=== PATIENT | female | born 1990 | race Caucasian/White ===

== ENCOUNTER 2017-04-06 06:15 | Inpatient (IN) ==
[2017-04-06] MEDS ORDERED: BUTORPHANOL 2 MG/ML VIAL IV PRN (06:25)
[2017-04-06] MEDS ORDERED: ONDANSETRON 4 MG/2 ML VIAL IV PRN (06:25)
[2017-04-06] MEDS ORDERED: MEPERIDINE 50 MG/1 ML VIAL IV PRN (06:25)
[2017-04-06] MEDS ORDERED: INFLUENZA VIRUS VACCINE 0.5 ML SYRINGE IM ONE (06:28)
[2017-04-06] MEDS ORDERED: OXYTOCIN/LR 20 UNIT/1,000 ML BAG IV SCH (06:30)
[2017-04-06] MEDS: LACTATED RINGERS 1,000 ML IV SCH ×3 (06:43→15:11)
[2017-04-06 06:58] LABS: Basophils # 0.1 10*3/uL (0.0-0.2); Basophils % 0.4 % (0.0-0.8); Eosinophils # 0.1 10*3/uL (0.0-0.87); Hematocrit 35.9 VOL% (35.7-47.0); Hemoglobin 11.9 GM/DL (12.0-16.0); Immature Granulocytes % 0.8 %; Immature Granulocytes Absolute 0.09 #; Lymphocytes # 3.2 10*3/uL (1.4-4.0); Lymphocytes % 26.4 % (21.3-54.2); Mean Corpuscular HGB Conc 33.1 GM/DL (32-36); Mean Corpuscular Hemoglobin 26 PG (27-34); Mean Corpuscular Volume 79.4 FL (87-102); Mean Platelet Volume 10.2 FL (9.6-12.0); Monocytes # 0.9 10*3/uL (0.11-0.8); Monocytes % 7.5 % (1.7-12.7); Neutrophils # 7.6 10*3/uL (1.4-7.4); Neutrophils % 63.9 % (38.7-73.9); Platelet Count 284 T/CUMM (130-400); Red Blood Count 4.52 MC/CUMM (3.8-5.5); White Blood Count 11.9 T/CUMM (4-12)
[2017-04-06 07:07] LABS: INR 0.8; PT Patient Result 8.9 SECS; Partial Thromboplastin Time 26.3 SECS (0-40)
[2017-04-06 07:34] LABS: Alanine Aminotransferase 26 U/L (13-56); Albumin 2.9 G/DL (3.4-5.0); Alkaline Phosphatase 160 U/L (45-117); Aspartate Amino Transferase 21 U/L (0-37); Bilirubin,Total < 0.39 MG/DL (0.2-1.0); Blood Urea Nitrogen 13 MG/DL (7-18); Calcium 8.4 MG/DL (8.5-10.1); Glucose 73 MG/DL (74-106); Osmolality,Calculated 273.7 MOS/KG (273-304); Potassium 3.8 MMOL/L (3.5-5.1); Sodium 138 MMOL/L (136-145); Total Protein 6.9 G/DL (6.4-8.3)
[2017-04-06] MEDS ORDERED: FAMOTIDINE 20 MG/2 ML VIAL IV PRN (08:28)
[2017-04-06] MEDS ORDERED: diphenhydrAMINE 50 MG/1 ML VIAL IV PRN (08:28)
[2017-04-06] MEDS ORDERED: ePHEDrine 50 MG/ML AMP IV PRN (08:28)
[2017-04-06] MEDS ORDERED: PROMETHAZINE 25 MG/1 ML VIAL IM PRN (08:28)
[2017-04-06] MEDS ORDERED: CITRIC ACID/SODIUM CITRATE 30 ML UDCUP PO PRN (08:28)
[2017-04-06] MEDS ORDERED: fentaNYL 2 MCG/ROPIV 0.2% EPID 150 ML EPIDURAL PRN (08:28)
[2017-04-06 08:53] LABS: Barbiturates Screen,Urine Negative (Negative); Benzodiazepines Screen,Urine Negative (Negative); Cannabinoid Screen,Urine Negative (Negative); Opiate Screen,Urine Negative (Negative); Phencyclidine Screen,Urine Negative (Negative)
--- NOTE | 2017-04-06 09:27 | OB/GYN History & Physical ---
History of Present Illness Chief complaint: In for elective induction of labor due to term . History of present illness: Ms. Ascencio is a 26 year old female who is a 3 para 2 living 2. Her ADRI is 04/11/2017 for an estimated gestational age of 39 weeks. The patient presents for elective induction of labor due to term . The risk and benefits of been thoroughly discussed with this patient significant other, plan of care has been discussed with Dr. Barrera, all parties are in agreement plan. Patient received her care at the [facility] and she received routine care and her course was uneventful. The patient has had 2 previous vaginal deliveries and the largest infant weighed 7 pounds and 1 ounce , she reported no complications with either . The patient has a prior history of substance abuse. She denies any current use. She continues to smoke cigarettes. She also has a history of hypertension doing this she was treated with labetalol and has done well. labs: She is B+, rubella is immune, RPR is nonreactive, hepatitis B negative, HIV negative, GBS culture negative. Review of systems is negative with exception of above. Home Medications Medication Instructions Recorded Confirmed Type Labetalol HCl 100 mg PO DAILY 03/17/17 04/06/17 History Ranitidine Tab [Zantac Tab] 150 mg PO BID 03/24/17 04/06/17 History Allergies Allergy/AdvReac Type Severity Reaction Status Date / Time Penicillins Allergy HIVES Verified 03/31/17 15:20 12 point system: reviewed and no additional remarkable complaints except as stated Medical,Surgical,& Family Hx - Medical History Cardio: History of: Hypertension (during preg) Respiratory: History of: Asthma Reproductive: No history of: Ectopic , Complication - Surgical History Neurologic Surgeries: Patient denies: Neurologic Surgery - Family History Family History: Reports;: Family Cancer (mom and sister cervical), Additional Family History (mother has hep c) - Social History Smoking Status: Current every day smoker Have you smoked in the last 12 months: Yes Frequency of Alcohol Use: None Type of Drug Use: None Marital Status: Single Lives With:: Significant Other Functional capacity: independent ambulation 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 Vitals: Vital Signs Temp Pulse Resp BP 04/06/17 06:25 97.1 F L 120 H 20 144/89 General appearance: no acute distress - Antepartum / Post Antepartum Exam Cervix - Dilatation: 4cm Effacement: 80% Station: -2 Rupture: Intact Presentation: Vertex Heart Rate: 130s Breast: bilateral: normal Abdomen obstetrics: Present: bowel sounds normal Vagina: Present: normal moisture, discharge Uterus exam: Present: enlarged - Respiratory Respiratory exam: Present: clear to auscultation bilaterally - Cardiovascular Cardiovascular exam: Present: regular rate and rhythm - GI/Abdominal GI/Abdominal exam: Present: normal bowel sounds, soft - Extremities Exam Extremities exam: Present: normal inspection - Back Exam Back exam: Present: normal inspection - Neurological Exam Neurological exam: Present: alert, oriented X3 - Psychiatric Psychiatric exam: Present: normal affect, normal mood - Skin Skin exam: Present: normal color, warm Assessment and Plan (1) 39 weeks gestation of Status: Acute Assessment and plan: Admit IV fluids IV Pitocin per protocol Artificial rupture membranes when appropriate Internal monitors if indicated Epidural anesthesia desired Anticipate Current Visit: Yes Results - Labs CBC & BMP: 04/06/17 06:43 04/06/17 06:43
--- NOTE | 2017-04-06 13:14 | Event Note ---
HPI: Ms. Ascencio presented to the labor department for elective induction of labor due to term . The risk and benefits were thoroughly discussed with the patient and significant other, plan of care discussed with Dr. Barrera and all parties were in agreement plan. Stage I: The patient was admitted she received IV fluids and IV Pitocin per protocol. Artificial rupture of membranes was performed with clear fluid noted. An epidural anesthesia was obtained for pain control. The patient progressed in labor with a CAT 1 tracing. She had an uneventful course of labor. Stage II: The patient was complete and instructed to push. She pushed for approximately 5 minutes at which time the infant's head was delivered. The mouth and nose suctioned on the perineum. A hand presentation was noted and reduced. The remainder the infant was delivered at 1250 a viable male was noted. Apgars were 8 at 1 minute and 9 at 5 minutes. weight was 7 pounds and 13 ounces. A cord pH was obtained and sent to the lab. The was placed on the mom's abdomen for skin to skin bonding. Stage III: A spontaneous delivery of a Steve placenta with a three-vessel cord noted. Placenta was further examined appeared to be grossly intact. The vagina cervix inspected with a first-degree perineal laceration noted which was repaired. Epidural anesthesia remain in effect on repair. Estimated blood loss was was approximately 150 cc. At the time of dictation mother and baby are both in stable condition.
[2017-04-06] MEDS ORDERED: ACETAMINOPHEN/CODEINE 300-30 MG TABLET PO PRN (13:16)
[2017-04-06 13:47] LABS: Apearance,Urine CLEAR (Clear); Bilirubin,Urine Negative (Negative); Blood, Urine Negative (Negative); Glucose,Urine (UA) Negative (Negative); Ketones,Urine Negative (Negative); Mucus,Urine Occasional /LPF (Occasional); Nitrite,Urine Negative (Negative); Protein,Urine Negative; RBC,Urine <1 /HPF (0-4); Squamous Epithelial Cell,Urine Occasional /HPF (0-10); Urine Color Yellow (Yellow); Urine Specific Gravity 1.009 (1.001-1.035); Urine Urobilinogen < 2.0 EU/DL (0.2-1.0)
[2017-04-06 13:52] LABS: Cord Arterial Blood HCO3 18.9 MMOL/L
[2017-04-06 13:55] LABS: Cord Venous Blood HCO3 22.6 MMOL/L; Cord Venous Blood PCO2 43.9 MMHG; Cord Venous Blood PO2 24.5
[2017-04-06] MEDS ORDERED: OXYTOCIN/LR 30 UNIT/1,000 ML BAG IV ONE (15:13)
[2017-04-06] MEDS ORDERED: DIPH/TET/ACEL PERT BOOSTER VACCINE 0.5 ML VIAL IM ONE (15:32)
[2017-04-06] MEDS ORDERED: WITCH HAZEL PADS 100/JAR TOP PRN (15:32)
[2017-04-06] MEDS ORDERED: oxyCODONE/ACETAMINOPHEN 5-325 MG TABLET PO PRN ×2 (15:32)
[2017-04-06] MEDS ORDERED: ACETAMINOPHEN 325 MG TABLET PO PRN (15:32)
[2017-04-06] MEDS ORDERED: BENZOCAINE 20%/MENTHOL 0.5% SPRAY 56 GM CAN TOP PRN (15:32)
[2017-04-06] MEDS ORDERED: BISACODYL 10 MG SUPP RECTAL PRN (15:32)
[2017-04-06] MEDS ORDERED: MEASLES/MUMPS/RUBELLA VACCINE 0.5 ML VIAL SUBCUT ONE (15:32)
[2017-04-06] MEDS ORDERED: HYDROCORTISONE 2.5% RECTAL CREAM 30 GM TUBE TOP PRN (15:32)
[2017-04-06] MEDS ORDERED: LANOLIN 50% CREAM 0.3 OZ TUBE TOP PRN (15:32)
[2017-04-06] MEDS ORDERED: RHO(D) IMMUNE GLOBULIN 300 MCG SYRINGE IM ONE (15:32)
[2017-04-06] MEDS: IBUPROFEN 800 MG TABLET PO PRN (20:14)
[2017-04-06] MEDS: DOCUSATE SODIUM 100 MG CAPSULE PO SCH (20:14)
--- NOTE | 2017-04-06 23:32 | Anesthesia Post-Op ---
Anesthesia Post OP - Post Ansesthetic Evaluation Patient seen in post op: Yes Resp: within normal limits CV: within normal limits Mental: within normal limits Temp: within normal limits [id number]: within normal limits Nausea and Vomiting: within normal limits Pain: within normal limits
[2017-04-07] MEDS: IBUPROFEN 800 MG TABLET PO PRN ×3 (03:52→20:14)
[2017-04-07 06:47] LABS: Basophils % 0.2 % (0.0-0.8); Eosinophils # 0.2 10*3/uL (0.0-0.87); Eosinophils % 1.1 % (0.00-10.9); Hematocrit 30.8 VOL% (35.7-47.0); Immature Granulocytes % 0.4 %; Immature Granulocytes Absolute 0.06 #; Lymphocytes # 2.9 10*3/uL (1.4-4.0); Lymphocytes % 20.6 % (21.3-54.2); Mean Corpuscular HGB Conc 32.5 GM/DL (32-36); Mean Corpuscular Hemoglobin 26 PG (27-34); Mean Corpuscular Volume 80.6 FL (87-102); Mean Platelet Volume 10.4 FL (9.6-12.0); Monocytes # 1.1 10*3/uL (0.11-0.8); Monocytes % 7.6 % (1.7-12.7); Neutrophils # 9.8 10*3/uL (1.4-7.4); Neutrophils % 70.1 % (38.7-73.9); Platelet Count 249 T/CUMM (130-400); Red Blood Count 3.82 MC/CUMM (3.8-5.5)
[2017-04-07] MEDS: DOCUSATE SODIUM 100 MG CAPSULE PO SCH ×2 (09:04→20:14)
--- NOTE | 2017-04-07 09:44 | OB/GYN Progress Note ---
Assessment and Plan (1) 39 weeks gestation of Status: Acute Assessment and plan: Admit IV fluids IV Pitocin per protocol Artificial rupture membranes when appropriate Internal monitors if indicated Epidural anesthesia desired Anticipate Current Visit: Yes (2) Vaginal delivery Status: Acute Assessment and plan: Initiate routine orders. 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 Bonding well with infant. Exam CHANNEL LAYER - Constitutional Vitals: Vital Signs Temp Pulse Resp BP Pulse Ox 04/07/17 07:28 98.7 F 76 18 118/63 98 04/07/17 06:47 17 04/07/17 06:00 18 04/07/17 04:59 18 04/07/17 04:00 97.1 F L 86 18 133/78 100 04/07/17 03:00 18 04/07/17 02:00 18 04/06/17 23:54 97.7 F 91 H 20 135/69 98 04/06/17 20:00 98.4 F 121 H 20 142/90 100 04/06/17 17:30 86 20 123/76 98 04/06/17 16:30 84 20 138/85 98 04/06/17 16:00 90 20 123/72 98 04/06/17 15:30 97.3 F L 83 20 122/74 98 General appearance: no acute distress - Antepartum / Post Post Exam Breast: bilateral: normal Abdomen obstetrics: Present: bowel sounds normal Vagina: Present: normal moisture, discharge (Light lochia rubra) Uterus exam: Present: enlarged (Fundus firm and midline) Anus/Rectum: Present: normal perianal skin - Respiratory Respiratory exam: Present: clear to auscultation bilaterally - Cardiovascular Cardiovascular exam: Present: regular rate and rhythm - GI/Abdominal GI/Abdominal exam: Present: normal bowel sounds, soft - Extremities Exam Extremities exam: Present: normal inspection - Neurological Exam Neurological exam: Present: alert, oriented X3 - Psychiatric Psychiatric exam: Present: normal affect, normal mood - Skin Skin exam: Present: normal color, warm Results - Labs CBC & BMP: 04/07/17 06:21 04/06/17 06:43
[2017-04-07] MEDS: FERROUS SULFATE 325 MG TABLET PO SCH ×2 (10:15→20:14)
[2017-04-08 07:25] VITALS: BP 114/69
[2017-04-08] MEDS: FERROUS SULFATE 325 MG TABLET PO SCH (08:51)
[2017-04-08] MEDS: DOCUSATE SODIUM 100 MG CAPSULE PO SCH (08:52)
[2017-04-08] MEDS: IBUPROFEN 800 MG TABLET PO PRN (08:52)
--- NOTE | 2017-04-08 09:44 | Discharge Summary ---
Hospital Course - Hospital Course Hospital Course: Ms. Ascencio presented to the labor department for elective induction of labor due to term . She subsequently delivered a viable with no complications. She has followed a normal course and she has done well. Her bleeding is minimal with no odor. Her perineum is intact with no edema. Her vital signs and lab values are stable. She is bonding well with her infant. Contraception options has been discussed with this patient, she is unsure of a method at this time. She states she thinks she may want to get her tubes tied will make that decision at her visit. She will be discharged to home with prescriptions for pain and a follow-up appointment in our office. Diagnosis - Discharge Diagnosis (1) 39 weeks gestation of Status: Acute (2) Vaginal delivery Status: Acute Specialty Discharge - Follow Up or Referrals Follow up with: Minna Barrera MD [Physician] - (Follow-up in 6 weeks.) Discharge Plan - Discharge Data Disposition: Disch To Home/Self Care Condition at Discharge: Stable Discharge Diet: advance to your usual diet, regular diet Activity: resume usual activities as tolerated Hygiene: no restrictions Weight Bearing at Discharge: weight bear as tolerated Driving: no restrictions Contact your physician if you experience:: fever over 101, Shortness of breath, pain uncontrolled by pain medications - Discharge Medications New Acetamin/Codeine 300-30 Tab [Tylenol/Codeine #3] 2 tablet PO Q4H PRN #30 tablet PRN Reason: Pain Mild (1-3) Ibuprofen Tab [Motrin Tab] 800 mg PO Q6H PRN #30 tablet PRN Reason: Pain Moderate (4-7) NIFEdipine XL TAB [Procardia Xl] 30 mg PO DAILY #30 tablet Ferrous Sulfate Tab [Feosol Original Tab] 325 mg PO BID #60 tablet No Action Labetalol HCl 100 mg PO DAILY Ranitidine Tab [Zantac Tab] 150 mg PO BID - Follow Up or Referral - Forms/Instructions Instructions: Depression (GEN), Perineal Care (DC), Vaginal Delivery (DC), Bleeding (DC) Exam - Constitutional Vitals: Period Temp Pulse Resp BP Sys/Afir Pulse Ox Last 24 Hr 5 F-97.7 F 61-93 18-20 109-155/40-101 97-100 General appearance: no acute distress - Head Head exam: Present: normal inspection - Respiratory Respiratory exam: Present: clear to auscultation bilaterally - Cardiovascular Cardiovascular exam: Present: regular rate and rhythm - GI/Abdominal GI/Abdominal exam: Present: normal bowel sounds, soft - Extremities Exam Extremities exam: Present: normal inspection, other - Neurological Exam Neurological exam: Present: alert, oriented X3 - Psychiatric Psychiatric exam: Present: normal affect, normal mood - Skin Skin exam: Present: normal color, warm DS: Provider Date of admission: 04/06/17 06:25 Primary care physician: . No PCP Attending physician on admission: Minna Barrera MD Consults: 04/06/17 06:25 Consult to Anesthesiology [CONS] Routine Consulting Provider: Reason for Anesthesiology: Epidural Consult Comment: Epidural for pain managment 04/06/17 15:32 Consult to Fieldwork Coordinator [CONS] Routine Consult Fieldwork Coordinator: Breast Feeding 04/06/17 15:40 Consult to Case Mgmt/Social Srvs [CONS] Routine Reason for Case Mgmt/Social Srvs: Other Consult Comment: history of drug use, negative drug screen on this admit Discharging clinician: Tash Quiroga CNM Expected date of discharge: 04/08/17
[2017-04-08] MEDS ORDERED: INFLUENZA VIRUS VACCINE 0.5 ML SYRINGE IM ONE (12:15)
== END 2017-04-08 14:05 | disposition home or self-care (01) | DRG 560 ==
LOC: N.LDOUT 06:15 → N.LD 06:18 → N.OB 15:16
PROVIDERS: ADMIT Obstetrics & Gynecology; ATTEND Obstetrics & Gynecology